=== PATIENT | male | born 2000 | race Caucasian/White ===

== ENCOUNTER 2021-09-26 02:36 | Emergency (ER) | payer MEDICAID, SELFPAY ==
[2021-09-26 02:37] VITALS: BP 146/80; PULSE 85; RESP 18; TEMP 36; O2SAT 96; BMI 16.9
--- NOTE | 2021-09-26 02:49 | EDS_ITS ---
HPI History of Present Illness Chief Complaint: Laceration Informant: patient Narrative Narrative: Patient accidentally stepped on a clean new knife at home. He cut his right heel. No other injury. He thinks he may have gotten tetanus at 17 years old. But he should be within 8 years at the most. Mild bleeding that spontaneously stopped. No other injury. No neurologic function loss. No change in range of motion. Nothing makes better or worse. [facility] Medical History Multiple personality disorder Home Medications NK 09/26/21 [History Last Taken Unknown] Allergy/AdvReac Type Severity Reaction Status Date / Time No Known Allergies Allergy Verified 09/26/21 02:41 Social History Smoking Status: Current every day smoker tobacco type: e-cigarettes ROS ROS ED Constitutional Constitutional ED: Denies fever(s) Respiratory/Chest Respiratory/Chest: Denies cough Gastrointestinal Gastrointestinal: Denies nausea or vomiting Musculoskeletal Musculoskeletal: Reports other Details: Injury to right heel. ; Denies back pain or neck pain Integumentary Reports other Details: Laceration right heel Neurologic Neurologic: Denies paresthesias or weakness Hematologic/Lymphatic Hematologic/Lymphatic: Denies easy bleeding or easy bruising EXAM Physical Exam Const Vital Signs: 09/26/21 02:37 Temperature 96.8 F L Temperature Source Temporal Pulse Rate 85 Respiratory Rate 18 Blood Pressure 146/80 H Blood Pressure Mean 102 Pulse Ox 96 Oxygen Delivery Method Room Air Positive well nourished and well developed General Appearance ED: well developed and NAD HEENT normocephalic and atraumatic Resp normal respiratory effort Back/Spine Back/Spine Narrative: No pain with motion or palpation of back. Extremity Extremity Narrative: Achilles is intact by palpation and Pandya test. He does have a 3 centimeter laceration to the posterior lateral aspect of his right heel. There was some dried blood but no active bleeding. No distal numbness tingling or weakness. Neuro oriented x3 Neuro Narrative: No distal sensory loss on exam. Skin Skin Narrative: Laceration right heel as above. MDM MDM MDM Narrative Medical decision making narrative: Procedure: Suture laceration: We discussed risks benefits and options. Cleansed with Shur-Clens and saline. It was then anesthetized first with topical LET. We then used 1% lidocaine without epinephrine locally to obtain further anesthesia. A total of 2 and half cc was used. When we measured this it actually measured 3 cm in length. The area was scrubbed with Shur-Clens and gauze. It was then copiously irrigated with saline. It was sutured with 6 interrupted 4-0 Ethilon with good cosmesis hemostasis and he tolerated this well. I explained that these need to stay in for likely 2 weeks because I have a high rate of opening. Because they are on the feet, they also have an increased rate of infection I will put him on a short course of antibiotics. We discussed reasons to return. Discharge Plan Triage Chief Complaint: Laceration ED Provider: Avinash Ramsey Dx/Rx/DC Orders Clinical Impression: Laceration of right heel, Suture of skin wound Instructions: ED Laceration, Foot: All Closures Prescriptions: No Action NK Primary Care Provider: NOT,DEFINED Referrals: Supriya Morejon DO [Med Staff - Active Staff] - 10-14 Days suture removal NOT,DEFINED [Primary Care Provider] - Disposition Disposition: Home, Self Care
[2021-09-26] MEDS: Lidocaine 1% (20 ml mdv) 20 ML Vial INFILT (02:51)
[2021-09-26] MEDS: Lidocaine/Epi/Tetracaine 50 ML 1 APPLIC TOPICAL (02:51)
[2021-09-26 03:37] VITALS: PULSE 75; RESP 18; O2SAT 96
== END 2021-09-26 03:37 | disposition home or self-care (01) ==
PROVIDERS: Emergency Provider Emergency Medicine; Visit Provider Emergency Medicine
DX: S91.311A Laceration without foreign body, right foot, initial encounter (principal); W26.0XXA Contact with knife, initial encounter; Y92.009 Unspecified place in unspecified non-institutional (private) residence as the place of occurrence of the external cause; F17.290 Nicotine dependence, other tobacco product, uncomplicated
CPT/HCPCS: 12002; 99285